=== PATIENT | male | born 1955 | race Caucasian/White ===

== ENCOUNTER 2016-05-03 23:13 | Emergency (ER) | payer BC ==
[2016-05-03 23:52] LABS: ABSOLUTE BASOPHILS # (AUTO) 0.1 10^3/uL (0.0-0.2); ABSOLUTE EOSINOPHILS # (AUTO) 0.5 10^3/uL (0.0-0.6); ABSOLUTE LYMPHOCYTES (AUTO) 1.7 10^3/uL (0.5-4.7); ABSOLUTE MONOCYTES (AUTO) 0.6 10^3/uL (0.1-1.4); ABSOLUTE NEUT (AUTO) 4.1 10^3/uL (1.7-8.2); BASOPHILS % (AUTO) 1.1 % (0-2); EOSINOPHILS % (AUTO) 7.6 % (0-6); HEMATOCRIT 35.7 % (37.9-51.0); HEMOGLOBIN 12.4 g/dL (13.5-17.0); HGB HCT DIFFERENCE 1.5; MEAN CORPUSCULAR HEMOGLOBIN 31.4 pg (27.0-33.4); MEAN CORPUSCULAR HGB CONC 34.7 g/dL (32.0-36.0); MEAN CORPUSCULAR VOLUME 91 fl (80-97); RED BLOOD COUNT 3.94 10^6/uL (4.35-5.55); RED CELL DISTRIBUTION WIDTH 12.8 % (11.5-14.0); SEGMENTED NEUTROPHILS % (AUTO) 58.3 % (42-78)
[2016-05-04 00:44] LABS: ALANINE AMINOTRANSFERASE 25 U/L (21-72); ALBUMIN 3.8 g/dL (3.5-5.0); ALKALINE PHOSPHATASE 107 U/L (38-126); ANION GAP 11 (5-19); ASPARTATE AMINO TRANSFERASE 21 U/L (17-59); BILIRUBIN,TOTAL 0.4 mg/dL (0.2-1.3); BLOOD UREA NITROGEN 12 mg/dL (7-20); CALCIUM 9.5 mg/dL (8.4-10.2); CARBON DIOXIDE 26 mmol/L (22-30); CHLORIDE 107 mmol/L (98-107); CREATINE KINASE 269 U/L (55-170); CREATININE RESULT 1.16 mg/dL (0.52-1.25); GLUCOSE 112 mg/dL (75-110); POTASSIUM 3.8 mmol/L (3.6-5.0); SODIUM 144.3 mmol/L (137-145); TOTAL PROTEIN 6.2 g/dL (6.3-8.2)
[2016-05-04 01:03] LABS: TROPONIN I < 0.012 ng/mL
--- NOTE | 2016-05-04 01:05 | ER Document Report ---
ED General - General Chief Complaint: Chest Pressure Stated Complaint: CHEST PAIN Notes: Patient is a 60-year-old male with past medical history of coronary artery disease status post three-vessel CABG in May 2015 after he had a NSTEMI who presents with acute onset of left-sided chest pain. Describes the pain as a severe, constant pressure-like sensation radiating to his left arm. He denies any associated nausea, vomiting or diaphoresis. States this feels identical to when he had his prior [place]. States his pain did go away completely with application of nitroglycerin paste. Nothing worsens the symptoms. He did not contact his perinatal coordinator regarding today's symptoms. TRAVEL OUTSIDE OF THE [place] IN LAST 30 DAYS: No - Related Data Allergies/Adverse Reactions: No Known Allergies Allergy (Verified 07/16/12 18:16) Past Medical History - General Information source: Patient - Social History Smoking Status: Current Every Day Smoker Frequency of alcohol use: None Drug Abuse: None Lives with: Spouse/Significant other Family History: Reviewed & Not Pertinent - Past Medical History Cardiac Medical History: Reports: Hx Heart Attack - 2016 Past Surgical History: Reports: Hx Cardiac Surgery - CABG x3 - Immunizations Hx Diphtheria, Pertussis, Tetanus Vaccination: Yes Review of Systems - Review of Systems Notes: Constitutional: Negative for fever. HENT: Negative for sore throat. Eyes: Negative for visual changes. Cardiovascular: Positive for chest pain. Respiratory: Negative for shortness of breath. Gastrointestinal: Negative for abdominal pain, vomiting or diarrhea. Genitourinary: Negative for dysuria. Musculoskeletal: Negative for back pain. Skin: Negative for rash. Neurological: Negative for headaches, weakness or numbness. 10 point ROS negative except as marked above and in HPI. Physical Exam - Vital signs Vitals: Temp Pulse Resp BP Pulse Ox 97.9 F 75 20 124/69 95 05/03/16 23:21 05/03/16 23:21 05/03/16 23:21 05/03/16 23:21 05/03/16 23:21 Interpretation: Normal Notes: PHYSICAL EXAMINATION: GENERAL: Well-appearing, well-nourished and in no acute distress. HEAD: Atraumatic, normocephalic. EYES: Pupils equal round and reactive to light, extraocular movements intact, sclera anicteric, conjunctiva are normal. ENT: nares patent, oropharynx clear without exudates. Moist mucous membranes. NECK: Normal range of motion, supple without lymphadenopathy LUNGS: Breath sounds clear to auscultation bilaterally and equal. No wheezes rales or rhonchi. HEART: Regular rate and rhythm without murmurs ABDOMEN: Soft, nontender, normoactive bowel sounds. No guarding, no rebound. No masses appreciated. EXTREMITIES: Normal range of motion, no pitting or edema. No cyanosis. NEUROLOGICAL: No focal neurological deficits. Moves all extremities spontaneously and on command. PSYCH: Normal mood, normal affect. SKIN: Warm, Dry, normal turgor, no rashes or lesions noted. Course - Re-evaluation Re-evalutation: 05/04/16 01:02 Presentation of chest pain in an otherwise well appearing patient. Primary concern is for possible ACS given patient's cardiac history and his story. His EKG however does not show any ST elevations or depressions. T-wave inversions in the lateral leads were not present prior EKG. PE seems unlikely given clinical history, absence of tachycardia or dyspnea. While score 0. CXR without evidence of pneumothorax or pneumonia. No widened mediastinum. Aortic dissection also seems unlikely given history, symmetric pulses, CXR, and vitals. 05/04/16 02:43 Second troponin has returned has being indeterminant at 0.046. However in the context of patient's clinical history I suspect that this will continue to up trend. He remains chest pain-free. I have spoken at length with the patient and his and they are in agreement with transfer to [facility] at this time given that this is where all his cardiac care has been performed. Likewise, given his T-wave flattening, elevating troponin, and concerning history I likewise alleviation via the center where they have interventional cardiology available. 05/04/16 03:00 I've spoken with the hospitalist at [facility] Dr. Lyons who has accepted the patient in transfer. Patient remains chest pain- free at this time. - Vital Signs Vital signs: Temp Pulse Resp BP Pulse Ox 97.9 F 75 20 128/79 H 96 05/03/16 23:21 05/03/16 23:21 05/04/16 02:53 05/04/16 02:53 05/04/16 02:53 - Laboratory Result Diagrams: 05/03/16 23:35 05/03/16 23:35 Laboratory results interpreted by me: 05/03/16 05/03/16 23:35 23:35 RBC 3.94 L Hgb 12.4 L Hct 35.7 L Plt Count 147 L Eosinophils % 7.6 H Glucose 112 H Creatine Kinase 269 H Total Protein 6.2 L - Diagnostic Test Radiology reviewed: Image reviewed, Reports reviewed Radiology results interpreted by me: 05/04/16 01:04 Chest x-ray: No acute infiltrate or widened mediastinum - EKG Interpretation by Me Additional EKG results interpreted by me: 05/04/16 01:04 Normal sinus rhythm. Rate 68. T wave inversions in V4 through 6. T-wave flattening in V3, 2 and 3. QTC is 447. No ST elevations or depressions. Discharge - Discharge Clinical Impression: Elevated troponin Chest pain Qualifiers: Chest pain type: unspecified Qualified Code(s): R07.9 - Chest pain, unspecified Condition: Fair Disposition: [facility]
[2016-05-04] MEDS ORDERED: ENOXAPARIN SODIUM INJ 100 MG/1 ML DISP.SYRIN SUBCUT SCH (10:00)
[2016-05-04 10:39] VITALS: BP 117/59
--- NOTE | 2016-05-04 11:03 | EKG REPORT ---
SEVERITY:- BORDERLINE ECG - SINUS RHYTHM LOW VOLTAGE IN FRONTAL LEADS BORDERLINE T ABNORMALITIES, ANT-LAT LEADS : Confirmed by: Minnie Ramirez 04-May-2016 11:02:35
== END 2016-05-04 11:08 | disposition short-term general hospital (02) ==
LOC: ER 23:13
DX: R07.89 Other chest pain (principal); R74.8 Abnormal levels of other serum enzymes; I25.10 Atherosclerotic heart disease of native coronary artery without angina pectoris; I25.2 Old myocardial infarction; F17.200 Nicotine dependence, unspecified, uncomplicated; Z95.1 Presence of aortocoronary bypass graft
CPT/HCPCS: 36415; 71010; 80053; 82550; 82553; 84484; 85025; 93005; 93010; 99285

== ENCOUNTER 2019-04-07 11:09 | Emergency (ER) | payer BC ==
[2019-04-07] MEDS ORDERED: IPRATROPIUM/ALBUTEROL 0.5-2.5 MG/3 ML AMPUL NEB ONE ×2 (11:24→12:29)
--- NOTE | 2019-04-07 11:25 | ER Document Report ---
ED Medical Screen (RME) - General Chief Complaint: Cold Symptoms Stated Complaint: COUGH/CHEST CONGESTION Time Seen by Provider: 04/07/19 11:17 Primary Care Provider: LINDA VANESSA FNP [Primary Care Provider] - Follow up as needed Mode of Arrival: Ambulatory Information source: Patient Notes: 63-year-old male with history of cardiac disease high blood pressure COPD presents emergency department with reports that he has been in bed since last . Reports fever hot and cold chills decreased appetite little bit of diarrhea. Reports he is now coughing up a little bit but is short of breath. Patient denies chest pain but complains of upper epigastric area pain where he had a hernia repaired. He reports it hurts now 5/5 whenever he coughs. Reports he usually goes to the bathroom first thing in the morning but he has not had to recently because he has not had a lot of fluids. Patient was very winded when he first came into the pit area. Respiratory rate even, positive wheeze, no retractions. I have greeted and performed a rapid initial assessment of this patient. A comprehensive ED assessment and evaluation of the patient, analysis of test results and completion of the medical decision making process will be conducted by additional ED providers. TRAVEL OUTSIDE OF THE [place] IN LAST 30 DAYS: No - Related Data Allergies/Adverse Reactions: No Known Allergies Allergy (Verified 04/07/19 11:15) Past Medical History - Past Medical History Cardiac Medical History: Reports: Hx Heart Attack - 2016 Past Surgical History: Reports: Hx Cardiac Surgery - CABG x3 - Immunizations Hx Diphtheria, Pertussis, Tetanus Vaccination: Yes Physical Exam - Vital signs Vitals: Temp Pulse Resp BP Pulse Ox 97.8 F 74 18 140/69 H 97 04/07/19 11:15 04/07/19 11:15 04/07/19 11:15 04/07/19 11:15 04/07/19 11:15 Course - Vital Signs Vital signs: Temp Pulse Resp BP Pulse Ox 97.8 F 74 18 140/69 H 97 04/07/19 11:15 04/07/19 11:15 04/07/19 11:15 04/07/19 11:15 04/07/19 11:15 Doctor's Discharge - Discharge Referrals: LINDA VANESSA FNP [Primary Care Provider] - Follow up as needed
--- NOTE | 2019-04-07 11:54 | RADIOLOGY REPORT (SQ) ---
EXAM DESCRIPTION: CHEST 2 VIEWS COMPLETED DATE/TIME: 04/07/2019 11:41 am REASON FOR STUDY: productive cough sob COMPARISON: Chest film 05/03/2016, 06/12/2015 EXAM PARAMETERS: NUMBER OF VIEWS: two views TECHNIQUE: Digital Frontal and Lateral radiographic views of the chest acquired. RADIATION DOSE: NA LIMITATIONS: none FINDINGS: LUNGS AND PLEURA: No opacities, masses or pneumothorax. No pleural effusion. MEDIASTINUM AND HILAR STRUCTURES: No masses or contour abnormalities. HEART AND VASCULAR STRUCTURES: No cardiomegaly. Old sternotomy for CABG BONES: No acute findings. HARDWARE: None in the chest. OTHER: No other significant finding. IMPRESSION: NO ACUTE RADIOGRAPHIC FINDING IN THE CHEST. TECHNICAL DOCUMENTATION: JOB ID: [id number] [employer]- All Rights Reserved Reading location - IP/workstation name: [email or web address]
[2019-04-07] MEDS ORDERED: METHYLPREDNISOLONE INJ 125 MG/2 ML SDV IV ONE (12:29)
[2019-04-07] MEDS ORDERED: MAGNESIUM SULFATE/D5W 1 GM/100 ML RTUPB IV ONE ×2 (12:30)
[2019-04-07] MEDS ORDERED: NORMAL SALINE 1000 ML 1,000 ML IV ONE (12:31)
--- NOTE | 2019-04-07 12:36 | ER Document Report ---
ED General - General Chief Complaint: Cough Stated Complaint: COUGH/CHEST CONGESTION Time Seen by Provider: 04/07/19 11:17 Primary Care Provider: LINDA VANESSA FNP [Primary Care Provider] - Follow up as needed Mode of Arrival: Ambulatory TRAVEL OUTSIDE OF THE [place] IN LAST 30 DAYS: No - HPI Notes: Patient is a 63-year-old male with history of coronary artery disease with triple bypass, former tobacco abuse, ?COPD who presents complaining of inte rmittent fever/body ache, nasal congestion/discharge, harsh dry cough, wheezing that began 4 to 5 days ago. Patient states that he has been laying in bed most of this time because he "feels like I got hit by a truck." He is able to eat and drink, but does have decreased intake. He is not urinating as frequently as he normally would be. He is having normal bowel movements. Patient states that he is having upper abdominal soreness from coughing only. He does have a hernia in this area from where his cardiac surgery took place, which remains unchanged otherwise. Denies any headache, neck pain, changes in vision/speech/mentation/hearing, sore throat, chest pain, palpitations, syncope, CP, nausea/vomiting/diarrhea, urinary retention, dysuria, hematuria, or rash. - Related Data Allergies/Adverse Reactions: No Known Allergies Allergy (Verified 04/07/19 11:15) Home Medications: [facility] Past Medical History - General Information source: Patient - Social History Smoking Status: Former Smoker Chew tobacco use (# tins/day): No Family History: Reviewed & Not Pertinent Patient has suicidal ideation: No Patient has homicidal ideation: No - Past Medical History Cardiac Medical History: Reports: Hx Heart Attack - 2016 Past Surgical History: Reports: Hx Cardiac Surgery - CABG x3 - Immunizations Hx Diphtheria, Pertussis, Tetanus Vaccination: Yes Review of Systems - Review of Systems -: Yes All other systems reviewed and negative Physical Exam - Vital signs Vitals: Temp Pulse Resp BP Pulse Ox 97.8 F 74 18 140/69 H 97 04/07/19 11:15 04/07/19 11:15 04/07/19 11:15 04/07/19 11:15 04/07/19 11:15 - Notes Notes: PHYSICAL EXAMINATION: GENERAL: Well-appearing, well-nourished and in no acute distress. A&Ox4. Answers questions appropriately. Moves comfortably w/o notable distress HEAD: Atraumatic, normocephalic. EYES: Pupils equal round and reactive to light, extraocular movements intact, [place] anicteric, conjunctiva are normal. ENT: Nares patent and with clear discharge. oropharynx no erythema without exudates. No tonsilar hypertrophy without erythema or exudate. No palatine shift. Uvula midline. No tongue protrusion. No drooling, hoarseness, or airway compromise. Moist mucous membranes. No sinus tenderness. NECK: Normal range of motion, supple without lymphadenopathy. No rigidity/meningismus. LUNGS: wheezing b/l primarily expiratory. no retractions. HEART: Regular rate and rhythm without murmurs, rubs, gallops. ABDOMEN: Soft, nontender, nondistended abdomen. No guarding, no rebound. Normal bowel sounds present. No CVA tenderness bilaterally. No obvious nonreducible or incarcerated hernia noted. NEUROLOGICAL: Normal speech, normal gait. PSYCH: Normal mood, normal affect. SKIN: Warm, Dry, normal turgor, no rashes or lesions noted. Course - Re-evaluation Re-evalutation: 04/07/19 17:39 Case thoroughly reviewed with Dr. Holm who agrees with dispo/plan: Patient is an afebrile, well-hydrated 63-year-old male who presents to the ED with acute URI/wheezing, suspect viral vs ?COPD exacerbation. Vitals are acceptable without any significant tachycardia, tachypnea, or hypoxia. PE is otherwise unremarkable aside from noted wheezing. Patient is nontoxic-appearing and is tolerating p.o. without any difficulties. CBC, CMP, EKG/cardiac enzymes 2, CTA chest (with elevated d-dimer), chest x-ray are all unremarkable for any acute pathology. Patient has a heart score of 3. Patient does not have any chest pain. Patient's presentation and symptomatology creates low suspicion for ACS, PE, pneumothorax, pericarditis, dissection, respiratory compromise, severe dehydration, sepsis, meningitis, or other systemic emergent condition at this time. Patient is aware that his condition can change from initial presentation and he needs to monitor symptoms closely and seek medical attention for any acute changes. Rx for zithromax, prednisone, albuterol. Recommend conservative measures for symptoms. Recheck with your PCM in 2-3 days. Consider consult with Cardiology. Return to the ED with any worsening/concerning symptoms otherwise as reviewed in discharge. Patient is in agreement. - Vital Signs Vital signs: Temp Pulse Resp BP Pulse Ox 97.8 F 74 16 140/69 H 93 04/07/19 11:15 04/07/19 11:15 04/07/19 17:00 04/07/19 11:15 04/07/19 17:00 - Laboratory Result Diagrams: 04/07/19 12:17 04/07/19 12:17 Laboratory results interpreted by me: 04/07/19 04/07/19 04/07/19 12:17 12:17 12:17 RBC 4.27 L Plt Count 82 L D-Dimer 1.80 H Glucose 121 H Discharge - Discharge Clinical Impression: Acute URI, Wheezing Condition: Stable Disposition: HOME, SELF-CARE Instructions: Upper Respiratory Illness ([facility]) Additional Instructions: Maintain adequate fluid and food intake Take home medications as directed Cold medications as needed Monitor symptoms for any acute changes Recheck with your PCM in 2-3 days Consider a follow-up with cardiology Return to the ED with any worsening symptoms and/or development of fever, headache, chest pain, palpitations, syncope, shortness of breath, trouble breathing, abdominal pain, n/v/d, blood in stool/urine, loss of control of bowel/bladder, urinary retention, muscle weakness/paralysis, numbness/tingling, or other worsening symptoms that are concerning to you. Prescriptions: Prednisone [Deltasone 10 mg Tablet] 10 mg PO DAILY #18 tablet Albuterol Sulfate [Proair HFA Inhalation Aerosol 8.5 gm MDI] 2 puff IH Q4H PRN #1 mdi PRN Reason: Azithromycin [Zithromax 250 mg Tablet] 500 mg PO DAILY #5 tablet Forms: Elevated Blood Pressure Referrals: LINDA VANESSA FNP [Primary Care Provider] - 04/09/19
[2019-04-07 12:46] LABS: ABSOLUTE EOSINOPHILS # (AUTO) 0.1 10^3/uL (0.0-0.6); ABSOLUTE MONOCYTES (AUTO) 0.4 10^3/uL (0.1-1.4); ABSOLUTE NEUT (AUTO) 2.8 10^3/uL (1.7-8.2); BASOPHILS % (AUTO) 0.6 % (0-2); EOSINOPHILS % (AUTO) 2.1 % (0-6); HEMATOCRIT 39.3 % (37.9-51.0); HEMOGLOBIN 13.8 g/dL (13.5-17.0); LYMPHOCYTES % (AUTO) 23.1 % (13-45); MEAN CORPUSCULAR HEMOGLOBIN 32.3 pg (27.0-33.4); MEAN CORPUSCULAR HGB CONC 35.1 g/dL (32.0-36.0); MEAN CORPUSCULAR VOLUME 92 fl (80-97); MONOCYTES % (AUTO) 10.1 % (3-13); RED BLOOD COUNT 4.27 10^6/uL (4.35-5.55); RED CELL DISTRIBUTION WIDTH 13.4 % (11.5-14.0); SEGMENTED NEUTROPHILS % (AUTO) 64.1 % (42-78); TOTAL CELLS COUNTED % (AUTO) 100 %; WHITE BLOOD COUNT 4.4 10^3/uL (4.0-10.5)
[2019-04-07 12:55] LABS: ALBUMIN 4.2 g/dL (3.5-5.0); ALKALINE PHOSPHATASE 81 U/L (38-126); ANION GAP 8 (5-19); ASPARTATE AMINO TRANSFERASE 45 U/L (17-59); BILIRUBIN,DIRECT 0.2 mg/dL (0.0-0.4); BILIRUBIN,TOTAL 0.5 mg/dL (0.2-1.3); BLOOD UREA NITROGEN 15 mg/dL (7-20); CALCIUM 9.1 mg/dL (8.4-10.2); CARBON DIOXIDE 29 mmol/L (22-30); CHLORIDE 102 mmol/L (98-107); GLUCOSE 121 mg/dL (75-110); POTASSIUM 3.6 mmol/L (3.6-5.0); TOTAL PROTEIN 7.4 g/dL (6.3-8.2)
[2019-04-07 13:04] LABS: TROPONIN I < 0.012 ng/mL
[2019-04-07 13:13] LABS: PLATELET COUNT 82 10^3/uL (150-450)
[2019-04-07 14:27] LABS: A TYPE INFLUENZA AG NEGATIVE (NEGATIVE); B INFLUENZA AG NEGATIVE (NEGATIVE)
[2019-04-07] MEDS ORDERED: ALBUTEROL SULFATE 0.083% NEB 2.5 MG/3 ML AMPUL NEB ONE (15:31)
--- NOTE | 2019-04-07 17:00 | RADIOLOGY REPORT (SQ) ---
EXAM DESCRIPTION: CTA CHEST COMPLETED DATE/TIME: 04/07/2019 4:41 pm REASON FOR STUDY: SOB, elevated d-dimer COMPARISON: None. TECHNIQUE: CT scan of the chest performed using helical scanning technique with dynamic intravenous contrast injection. Images reviewed with lung, soft tissue and bone windows. Reconstructed coronal and sagittal MPR images reviewed. Additional 3 dimensional post-processing performed to develop Maximal Intensity Projection images ([place] P). All images stored on PACS. All CT scanners at this facility use dose modulation, iterative reconstruction, and/or weight based d osing when appropriate to reduce radiation dose to as low as reasonably achievable (ALARA). [facility]: Dose Right [facility]: CareDose [facility]: Dose Right [facility]: Teradose 4D [facility]: [place] CONTRAST TYPE AND DOSE: contrast/concentration: Isovue 350.00 mg/ml; Total Contrast Delivered: 69.0 ml; Total Saline Delivered: 80.0 ml Contrast bolus adequate for pulmonary arteries and aorta. RENAL FUNCTION: BUN 15 creatinine 0.91. RADIATION DOSE: CT Rad equipment meets quality standard of care and radiation dose reduction techniq ues were employed. CTDIvol: 13.2 - 21.2 mGy. DLP: 823 mGy-cm. . LIMITATIONS: None. FINDINGS: LUNGS AND PLEURA: Mild scarring. No masses, infiltrates, or pneumothorax. No pleural eff usions or pleural calcifications. AORTA AND GREAT VESSELS: No aneurysm. No dissection. HEART: No pericardial effusion. No significant coronary artery calcifications. PULMONARY ARTERIES: No emboli visualized in the main pulmonary arteries or the segmental branches. HILAR AND MEDIASTINAL STRUCTURES: No identified masses or abnormal nodes. HARDWARE: Sternotomy wires. UPPER ABDOMEN: No significant findings. Limited exam. THYROID AND OTHER SOFT TISSUES: No masses. No adenopathy. BONES: No acute or significant finding. 3D MIPS: Confirm above findings. OTHER: No other significant finding. IMPRESSION: NORMAL CTA OF THE CHEST. NO PULMONARY EMBOLI. COMMENT: Quality ID # [id number]: Final reports with documentation of one or more dose reduction techniques (e.g., Automated exposure control, adjustment of the mA and/or kV according to patient size, use of iterative reconstruction technique) TECHNICAL DOCUMENTATION: JOB ID: [id number] [employer]- All Rights Reserved Reading location - IP/workstation name: [email or web address]
[2019-04-07 17:56] VITALS: BP 125/65
--- NOTE | 2019-04-07 22:37 | EKG REPORT ---
SEVERITY:- ABNORMAL ECG - SINUS RHYTHM ABNORMAL T, CONSIDER ISCHEMIA, ANTERIOR LEADS : Confirmed by: Minnie Ramirez 07-Apr-2019 22:36:48
--- NOTE | 2019-04-07 22:37 | EKG REPORT ---
SEVERITY:- ABNORMAL ECG - SINUS RHYTHM ABNORMAL T, CONSIDER ISCHEMIA, ANTERIOR LEADS BORDERLINE PROLONGED QT INTERVAL : Confirmed by: Minnie Ramirez 07-Apr-2019 22:36:41
== END 2019-04-07 18:08 | disposition home or self-care (01) ==
LOC: ER 11:09
DX: J06.9 Acute upper respiratory infection, unspecified (principal); R06.2 Wheezing; R50.9 Fever, unspecified; R52 Pain, unspecified; R09.81 Nasal congestion; R05 Cough; R39.89 Other symptoms and signs involving the genitourinary system; R79.89 Other specified abnormal findings of blood chemistry; I25.10 Atherosclerotic heart disease of native coronary artery without angina pectoris; Z95.5 Presence of coronary angioplasty implant and graft; Z87.891 Personal history of nicotine dependence
CPT/HCPCS: 93005; 94640; 99284; 36415; 82553; 83690; 85025; 80053; 84484; 85379; 87804; 83880; 71046; 71275; 93010; J2930; J3475; J7030; J7620